=== PATIENT | male | born 1965 | race Caucasian/White ===

== ENCOUNTER 2017-01-17 00:14 | Emergency (ER) | payer BC ==
[2017-01-17] MEDS ORDERED: Ketorolac INJ* 60 MG/2 ML VIAL IM ONE (01:20)
[2017-01-17] MEDS ORDERED: Cyclopentolate 1% OPTH.SOL* 2 ML BTL BOTH EYES ONE (01:21)
[2017-01-17] MEDS ORDERED: traMADol TAB* 50 MG PO ONE ×2 (01:21→01:33)
[2017-01-17] MEDS ORDERED: Polymyx/Trimethoprim OPTH* 10 ML BTL BOTH EYES ONE (01:33)
--- NOTE | 2017-01-17 01:39 | ED ---
Throat Pain/Nasal Congestion - HPI Summary HPI Summary: 52M presents with bilateral extreme eye pain today. 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 He states at 9pm he developed extreme pain in his eyes and that he is unable to open them due to pain. He denies any foreign body. He admits to extreme photophobia. He denies any facial swelling. He denies any fever. - History of Current Complaint Chief Complaint: EDEyeProblem Time Seen by Provider: 01/17/17 01:14 - Allergies/Home Medications Allergies/Adverse Reactions: Allergies Allergy/AdvReac Type Severity Reaction Status Date / Time Penicillins Allergy Unknown Verified 01/17/17 01:29 Reaction Details PMH/Surg Hx/FS Hx/Imm Hx Endocrine/Hematology History: Denies: Hx Anticoagulant Therapy Cardiovascular History: Denies: Hx Hypertension Infectious Disease History: No Infectious Disease History: Denies: Traveled Outside the [place] in Last 30 Days - Family History Known Family History: Positive: Hypertension - Social History Alcohol Use: Occasionally Substance Use Type: Reports: None Smoking Status (MU): Former Smoker Review of Systems Negative: Fever Positive: Photophobia, Blurred Vision, Erythema Negative: Chest Pain Negative: Shortness Of Breath All Other Systems Reviewed And Are Negative: Yes Physical Exam Triage Information Reviewed: Yes Vital Signs On Initial Exam: Initial Vitals Temp Pulse Resp BP Pulse Ox 98.1 F 71 16 160/97 100 01/17/17 00:18 01/17/17 00:18 01/17/17 00:18 01/17/17 00:18 01/17/17 00:18 Vital Signs Reviewed: Yes Appearance: Positive: Well-Appearing Skin: Positive: Warm, Dry Head/Face: Positive: Normal Head/Face Inspection Eyes: Positive: EOMI, ALVARO, Conjunctiva Inflammed, Other: - after tetracaine placed patient able to open eyes, no foreign body seen, no swelling around eye Procedures - Eye Procedure Alcaine Drops Administered: Yes Cyclogel 2 Drops Administered: both eyes Antibiotic Ointment/Drps Admin: both eyes Diagnostics - Vital Signs Vital Signs Temp Pulse Resp BP Pulse Ox 01/17/17 01:18 98.1 F 71 16 161/87 97 01/17/17 00:18 98.1 F 71 16 160/97 100 - Laboratory Lab Statement: Any lab studies that have been ordered have been reviewed, and results considered in the medical decision making process. 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 developed extreme pain in his eyes 12 hours later with photophobia. patient denies any foreign body and declined fluorscein exam. administered tetracaine, cyclogyl, and polytrim. on exam inject conjunctiva seen. symptoms classic for photokeratitis. told to follow up with opthomology and use goggles when welding. gave pain medication. patient understands and agrees with plan - Differential Diagnoses Differential Diagnoses: Conjunctivitis, Corneal Abrasion, Other - photokeratitis - Diagnoses Provider Diagnoses: Photokeratitis of both eyes Discharge - Discharge Plan Condition: Good Disposition: HOME Prescriptions: traMADol TAB* [Ultram*] 50 mg PO Q6HR PRN #20 tab MDD 4 PRN Reason: Pain Patient Education Materials: Corneal Flash Dominguez (ED) Referrals: Chinmay Ron MD [Primary Care Provider] - Dov Jordan MD [Medical Doctor] - Additional Instructions: Place 1 drop in eye 4 times a day for 5 days of antibiotic Use artificial tears or saline to rinse eye for symptomatic relief Take Tylenol or ibuprofen for pain, use narcotic every 6 hours as needed for pain Wear sunglasses on eyes Follow up with ophthalmology within 48 hours Return to ED if develop any new or worsening symptoms
[2017-01-17] MEDS ORDERED: oxyCODONE/Acetamin 5/325 MG* TAB PO ONE (01:50)
[2017-01-17 02:45] VITALS: BP 160/97
== END 2017-01-17 02:05 | disposition home or self-care (01) ==
LOC: ED 00:14
DX: H16.133 Photokeratitis, bilateral (principal)
CPT/HCPCS: 96372; 99285; A9270-GY; J1885